=== PATIENT | female | born 1930 | race Caucasian/White ===

== ENCOUNTER 2016-04-20 07:36 | Inpatient (IN) | payer OTHER ==
--- NOTE | 2016-04-20 08:25 | Diag Imaging Result Document ---
PROCEDURE NAME: HEAD W/O CONTRAST - 04/20/2016 CT HEAD WITHOUT CONTRAST: A dose-reduction protocol was used. COMPARISON: 12/13/2014. FINDINGS: There is periorbital subcutaneous soft tissue swelling on the left. There is no evidence of intracranial hemorrhage, mass effect, or midline shift. There are minimal chronic microvascular ischemic changes. There is no indication of recent infarct, although acute infarcts may not be immediately visible. There is no evidence of skull fracture. IMPRESSION: Periorbital subcutaneous soft tissue swelling on the left. No visible acute intracranial abnormality. No hemorrhage or mass effect.
--- NOTE | 2016-04-20 08:59 | PROVIDER DOCUMENTATION ---
HPI-General Adult <Ramya Luu - Last Filed: 04/20/16 14:42> - General Source: patient, EMS Unable to obtain history due to:: other (decrease responsiveness) - History of Present Illness -Gen Adult Nature of Presenting Problems: Per daughter, patient was difficult to arouse this morning when she being called by name. patient has been fever free during this time and has not complained of any chest pain or shortness of breath. Had a fall 2 days ago. patient has not had any chest pain or shortness of breath. Has been w/o fever during this time. Has been taking trazadone and fabiola's as prescribed. <Jose Tomas - Last Filed: 04/20/16 15:03> - General Chief Complaint: Unresponsive Stated Complaint: Difficulty to arouse Time Seen by Provider: 04/20/16 08:14 Allergies/Adverse Reactions: Patient Allergies Allergy/AdvReac Type Severity Reaction Status Date / Time dexamethasone sod phosphate * Allergy Severe CHEST PAIN Verified 02/09/16 09:01 [From Decadron] codeine [Codeine] Allergy Intermediate anxiety Verified 02/09/16 09:01 dexamethasone [From Decadron] AdvReac Intermediate CHEST PAIN Verified 02/09/16 09:01 Home Medications: Home Medication List Medication Instructions Recorded Confirmed Last Taken Type Albuterol 2.5MG/Ipratrop 0.5MG 3 ml INH RTQ6H #0 neb 02/26/16 04/20/16 Unknown Rx [Duoneb (A & A)] Carvedilol [Coreg] 3.125 mg PO BID 30 Days 02/26/16 04/20/16 Unknown Rx Divalproex [Depakote Sprinkle] 750 mg PO QHS 30 Days 02/26/16 04/20/16 04/19/16 20:00 Rx Docusate Sodium [Colace] 100 mg PO BID 30 Days 02/26/16 04/20/16 Unknown Rx Duloxetine [Cymbalta] 30 mg PO DAILY #30 capsule 02/26/16 04/20/16 04/19/16 08: 00 Rx Fluticasone/Salmet 250/50 INH 1 puff INH DAILY #1 inhaler 02/26/16 04/20/16 Unknown Rx [Advair 250/50 Diskus] Furosemide [Lasix] 20 mg PO QAM 30 Days 02/26/16 04/20/16 04/19/16 08:00 Rx LISINOpril [Prinivil] 2.5 mg PO QAM 30 Days 02/26/16 04/20/16 Unknown Rx Lorazepam [Ativan] 0.5 mg PO BID 30 Days 02/26/16 04/20/16 04/19/16 20:00 Rx Melatonin 5 mg PO QHS #30 tablet 02/26/16 04/20/16 04/19/16 20:00 Rx Mirtazapine [Remeron] 30 mg PO QHS 30 Days 02/26/16 04/20/16 04/19/16 20:00 Rx Multivitamins/Minerals [Centrum 1 each PO DAILY 30 Days 02/26/16 04/20/16 08:00 Rx Silver] Olanzapine [Zyprexa] 30 mg PO QHS 30 Days 02/26/16 04/20/16 04/19/16 20:00 Rx Tramadol/APAP [Ultracet 1 each PO DAILY@1300 30 Days 02/26/16 04/20/16 Unknown Rx 37.5MG/325Mg] Trazodone [Desyrel] 50 mg PO QHS 30 Days 02/26/16 04/20/16 04/19/16 20:00 Rx Cetirizine [Zyrtec] 10 mg PO DAILY 04/20/16 04/20/16 04/19/16 08:00 History Cholecalciferol (Vit D3) [Vitamin 5,000 unit PO DAILY 04/20/16 04/20/16 08:00 History D] Omeprazole [Prilosec] 20 mg PO BID 04/20/16 04/20/16 04/19/16 20:00 History Review of Systems - Adult - REVIEW OF SYSTEMS - ADULT ROS:: limited per condition Constitutional: denies: fever Ears, Nose, Mouth & Throat: reports: no symptoms reported Cardiovascular: denies: chest pain Respiratory: denies: shortness of breath Gastrointestinal: reports: no symptoms reported Genitourinary: reports: no symptoms reported Neurological: reports: other (drowsiness) <Jose Tomas - Last Filed: 04/20/16 15:03> Past History - Adult - PAST MEDICAL HISTORY-ADULT Review of Records: reports: Nursing Assessment Review Major Childhood Illnesses: reports: denies history Cardiovascular: reports: HTN Respiratory: reports: COPD Gastrointestinal: reports: denies history Obstetrical/Gynecological: reports: denies history Genitourinary: reports: denies history Musculoskeletal: reports: denies history Neurological: reports: denies history Psychiatric: reports: psychiatric problems Endocrine/Immune: reports: denies history Other Conditions: reports: denies history - PRIOR SURGERIES/PROCEDURES Surgical/Procedure History: reports: reviewed, not pertinent - IMMUNIZATION STATUS Childhood Immunizations: See Nurse Assessment Flu Vaccine: See Nurse Assessment - FAMILY HISTORY Family History: reviewed, not pertinent <Jose Tomas - Last Filed: 04/20/16 15:03> Physical Exam-General - PHYSICAL EXAM-ADULT Initial Vital Signs Reviewed: Yes - CONSTITUTIONAL General Appearance: no apparent distress, slow to respond, other (non-toxic in appearance) - EYES Eyes: PERRL/EOMI, other (left shirley-orbital swelling) - HEAD, EARS, NOSE, MOUTH & THROAT HENMT: pharynx normal. negative: angioedema - NECK Neck: non-tender - RESPIRATORY Respiratory: chest non-tender, other (decrease BS on left base.) - CARDIOVASCULAR Cardiovascular: normal peripheral pulses - CHEST (BREASTS) Chest/Breast: deferred - GASTROINTESTINAL (ABDOMEN) Abdominal Exam: normal bowel sounds, non tender, abnormal bowel sounds, other ( no RLQ or LLQ pain). negative: distended, rebound - GENITOURINARY Female Genitalia/Pelvic Exam: deferred - MUSCULOSKELETAL Back Exam: normal inspection Extremity: non-tender, no pedal edema. negative: abnormal NV exam, deformity, erythema, pulse deficit, pedal edema - SKIN Integumentary: other (no sign of soft tissue infection.) <Jose Tomas - Last Filed: 04/20/16 15:03> Progress - PLAN OF CARE/RESULTS Progress/Plan/Lab Results: Laboratory Tests 04/20/16 04/20/16 04/20/16 08:59 09:26 09:26 WBC RBC Hgb Hct MCV MCH MCHC RDW Std Deviation Plt Count MPV Immature Gran % (Auto) Neut % (Auto) Lymph % (Auto) [place] % (Auto) Eos % (Auto) Baso % (Auto) Immature Gran # (Auto) Neut # (Auto) Lymph # (Auto) [place] # (Auto) Eos # (Auto) Baso # (Auto) PT INR PTT (Actin FS) Specimen Type ARTERIAL Sample Site R RADIAL pH 7.38 pCO2 61 H* pO2 78 HCO3 31.8 H Base Excess 9.0 H Oxyhemoglobin 92.7 L ABG O2 Sat (Calculated) 16.0 ABG O2 Saturation 98.8 ABG Carboxyhemoglobin 4.90 H ABG Methemoglobin 1.3 Bryan Test YES A-a O2 Difference 45.0 Total Hemoglobin 12.2 Lactate 0.50 Liter Flow 2.0 Blood Gas Modality CANNULA FiO2 % 28.0 Sodium 135 L Potassium 4.5 Chloride 94 L Carbon Dioxide 30 Anion Gap 11 BUN 9 Creatinine 0.7 Estimated GFR/1.73 m2 > 60 BUN/Creatinine Ratio 13 Glucose 123 H Calculated Osmolality 270 Calcium 8.7 L Total Bilirubin 0.35 AST 14 ALT 8 L Alkaline Phosphatase 67 Creatine Kinase 69 Troponin T Total Protein 5.9 L Albumin 3.2 L Globulin 2.7 Albumin/Globulin Ratio 1.2 Plasma Lactate 1.2 04/20/16 04/20/16 04/20/16 09:26 09:26 09:33 WBC 5.08 RBC 3.87 L Hgb 12.3 Hct 39.2 MCV 101.3 H MCH 31.8 H MCHC 31.4 L RDW Std Deviation 15.7 H Plt Count 104 L MPV 10.8 H Immature Gran % (Auto) 0.8 H Neut % (Auto) 81.5 H Lymph % (Auto) 11.0 L [place] % (Auto) 6.3 Eos % (Auto) 0.2 Baso % (Auto) 0.2 Immature Gran # (Auto) 0.04 Neut # (Auto) 4.14 Lymph # (Auto) 0.56 L [place] # (Auto) 0.32 Eos # (Auto) 0.01 Baso # (Auto) 0.01 PT 10.9 INR 1.03 PTT (Actin FS) 31.3 Specimen Type Sample Site pH pCO2 pO2 HCO3 Base Excess Oxyhemoglobin ABG O2 Sat (Calculated) ABG O2 Saturation ABG Carboxyhemoglobin ABG Methemoglobin Bryan Test A-a O2 Difference Total Hemoglobin Lactate Liter Flow Blood Gas Modality FiO2 % Sodium Potassium Chloride Carbon Dioxide Anion Gap BUN Creatinine Estimated GFR/1.73 m2 BUN/Creatinine Ratio Glucose Calculated Osmolality Calcium Total Bilirubin AST ALT Alkaline Phosphatase Creatine Kinase Troponin T < 0.010 Total Protein Albumin Globulin Albumin/Globulin Ratio Plasma Lactate - REASSESSMENT Reassessment #1 Time Reassessed: 08:58 Status: other (stable, Daughter made aware of CT results and curerent treatment plan.) Reassessment #2 Time Reassessed: 11:20 Status: improving (patient AAO times person, place, time and current situation. Asked when she can go home, patient participating in conversation. Per daughter patient is acting her normal self again. Made aware of polypharmacy and to follow up with PCP for medication adjustments.) - XRAY 1 XRAY Study: Chest (LLL lobe infiltrate which is greater than rll infiltrate.) Impression: Abnormal - CT/MRI 1 CT Study: Head (No acute intracranial bleed and no viable acuute intracranial abnormality.) - CONSULTS/PCP/HOSPITALIST Notification Time Discussed: 13:06 Consult Disposition: Will see in ED (Spoke with Samra Pantoja and made aware of Xray finding and current treatment plan. Sasys he will accept patient for admission.) <Jose Tomas - Last Filed: 04/20/16 15:03> Departure - Departure Time of Disposition Order: 11:26 Certified Medical Emergency: Emergent <Ramya Luu - Last Filed: 04/20/16 14:42> - Departure Time of Disposition Order: 12:03 Certified Medical Emergency: Emergent <Jose Tomas - Last Filed: 04/20/16 15:03> - Departure DIAGNOSIS: Polypharmacy, CAP (community acquired pneumonia) Disposition: ADMITTED INPATIENT 09 Condition: Stable Additional Instructions: daughter made aware of treatment plan and all questions were answered regarding treatment. Referrals: Noe Pedraza MD [Primary Care Provider] - Instructions: Polypharmacy Problems Attestation - Scribe Verification/Attestation Scribe:: Ramya Luu Acting as Scribe for:: Jose Tomas Scribe documention review:: This chart was documented by a scribe and accurately reflects the service the provider performed and the decisions made by the provider. <Ramya Luu - Last Filed: 04/20/16 14:42> Physician Attestation
[2016-04-20 09:33] LABS: ALLEN TEST YES; BLOOD TYPE ARTERIAL; DRAW SITE R RADIAL; METHB 1.3 % (0.0-1.5); PO2(98.6) 78 mmHg (60-100); SAMPLE BLOOD; SAO2 98.8 % (95.0-100.0); THB 12.2 g/dL (11.5-17.4); pH(98.6) 7.38 (7.35-7.45)
[2016-04-20 09:34] LABS: MANUAL DIFF NEEDED? NO
[2016-04-20 09:35] LABS: MODALITY CANNULA; PCO2(98.6) 61 mmHg (35-45)
[2016-04-20 09:37] LABS: BASO% 0.2 % (0.0-0.8); EOS# 0.01 X1000 (0.0-0.7); EOS% 0.2 % (0.0-10.0); HEMATOCRIT 39.2 % (37.0-47.0); HEMOGLOBIN 12.3 g/dL (12.0-16.0); IMM GRAN# 0.04 X1000 (0.0-0.04); IMM GRAN% 0.8 % (0.0-0.5); LYMPH# 0.56 X1000 (1.2-3.4); MCH 31.8 PG (27-31); MCHC 31.4 g/dL (33-37); MCV 101.3 FL (81-99); MONO# 0.32 X1000 (0.11-0.59); MONO% 6.3 % (1.7-9.3); MPV 10.8 FL (7.4-10.4); NEUT% 81.5 % (42.2-75.2); PLT 104 X1000 (130-400); RBC 3.87 XMIL (4.2-5.4)
[2016-04-20 09:47] LABS: INR 1.03; PROTIME 10.9 Seconds (9.2-11.7); PTT 31.3 Seconds (22.0-36.0)
[2016-04-20 09:58] LABS: AGAP 11; ALBUMIN 3.2 g/dL (3.5-5.0); ALKALINE PHOSPHATASE 67 U/L (32-104); BUN 9 mg/dL (8-22); CALCIUM 8.7 mg/dL (8.8-10.2); CHLORIDE 94 mmol/L (98-107); CK PROFILE 69 U/L (24-173); COSMO 270; GOT 14 U/L (10-30); GPT 8 U/L (10-36); POTASSIUM 4.5 mmol/L (3.5-5.1); SODIUM 135 mmol/L (136-145); TCO2 30 mmol/L (25-35); TOTAL BILIRUBIN 0.35 mg/dL (0.20-1.00); TOTAL PROTEIN 5.9 g/dL (6.3-8.3)
[2016-04-20] MEDS ORDERED: ZOSYN 2.25 GM/NS 50 ML IV SCH ×2 (12:30→13:00)
[2016-04-20] MEDS ORDERED: NS 1,000 ML IV SCH (13:45)
[2016-04-20] MEDS ORDERED: ROBITUSSIN-DM PO PRN (16:35)
[2016-04-20] MEDS ORDERED: ZOFRAN IV PRN (16:35)
[2016-04-20] MEDS ORDERED: MILK OF MAGNESIA PO PRN (16:36)
--- NOTE | 2016-04-20 17:18 | HISTORY AND PHYSICAL ---
CHIEF COMPLAINT: Mental status change and fall. HISTORY OF PRESENT ILLNESS: The patient is an 85-year-old white female, followed by Dr. Starla Pedraza. Apparently this morning her daughter noted that the patient was not breathing correctly and that some dogs that are in the house began to notify family members she was not breathing and having her normal mentation. Daughter went in and woke the patient up and grabbed her out of bed but the patient was not responding well and apparently fell over and hit her left eye and her right knee. There was no loss of consciousness. Patient since then has done better. She has had no particular difficulties with mental status change since being in the ER, she has been eating hamburger and feeling better overall. Notably she is on quite a lot of medications. Some of these were administered on a recent stay and adjusted to recent stay at [facility]. Patient is a poor historian and she thinks she might have run some fever but cannot give me a time frame on that. MEDICATIONS: Prior to admission are Coreg 3.125 mg p.o. b.i.d., Depakote Sprinkle 750 mg p.o. at bedtime, Cymbalta 30 mg p.o. daily, Lasix 20 mg p.o. q.a.m., lisinopril 2.5 mg p.o. q.a.m., Ativan 0.5 mg p.o. b.i.d., melatonin 5 mg p.o. at bedtime, Remeron 30 mg p.o. at bedtime, MVI 1 p.o. daily, Zyprexa 30 mg p.o. at bedtime, Ultracet 1 p.o. daily, duo nebs q.6 hours via nebulizer, Colace 100 mg p.o. b.i.d., Advair 250/50 one puff daily, trazodone 50 mg p.o. at bedtime, Zyrtec 10 mg p.o. daily, vitamin D3 5000 units p.o. daily, Prilosec 20 mg p.o. b.i.d. I notice an Exelon patch is on her back so apparently she takes this. ALLERGIES: To codeine, dexamethasone. PAST MEDICAL HISTORY: 1. Frequent pneumonias. 2. COPD. 3. Paranoid schizophrenia. 4. Chronic systolic heart failure. 5. Mild dementia. 6. Depression with anxiety. 7. History of osteoporosis with compression fracture at T5 and T6. 8. Gastroesophageal reflux disease 9. Tobacco abuse. 10. Pulmonary fibrosis. 11. History of pericardial effusion. PAST SURGICAL HISTORY: Cholecystectomy. FAMILY HISTORY: Notable for father dying of lung cancer at age 69. SOCIAL HISTORY: Patient lives in [place]. She is and lives with her daughter. Continues to smoke. No alcohol usage. REVIEW OF SYSTEMS: Notable for chronic constipation otherwise negative. PHYSICAL EXAMINATION: VITAL SIGNS: Temperature 98.1 degrees, pulse 86, respirations 15, blood pressure 144/74, O2 saturation on 1 L 95%, on room air down to 90% at one point. GENERAL: Elderly white female, edentulous. SKIN: A moderate bruise noted left zygoma area. HEENT: ANSELMO. EOMI. Sclerae anicteric. OP no redness. Tongue in the midline. NECK: No point tenderness. FROM neck. No JVD or bruits. No LA identified. CV: RRR without distinct murmur. LUNGS: Very prominent crackles left lower lung field, maybe minimal dry crackles right lung base. Rare wheezes bilaterally. BREAST/ PELVIC/ RECTAL: Deferred. EXTREMITIES: No calf tenderness, cords or edema. FROM right knee without particular swelling, no bruising identified . NEURO: Cranial nerves 2-12 are intact. Nonfocal. She moves all extremities well. She does show some signs of mild dementia and mild confusion which is chronic. LABS: White count of 5.08, hemoglobin 12.3, hematocrit 39.2, MCV of 101, platelets 104,000, neutrophils 82, lymphocytes 11. PT 10.9, INR 1.03, PTT 31.3. ABG on 2 L reveals pH 7.38, pCO2 61, PO2 78, HC03 31.8, O2 saturation 98, carboxyhemoglobin 4.9. Sodium 135, potassium 4.5, chloride 94, CO2 20, BUN 9, creatinine 0.7, glucose 123, calcium 8.7, total bilirubin 0.35, AST 14, ALT 8, alkaline phosphatase 67, total CK 69, troponin less than 0.01, total protein 5.9, albumin 3.2. Plasma lactate 1.2. Chest x-ray reveals possible infiltrate left lung base. CT head without contrast reveals periorbital subcutaneous soft tissue swelling left zygoma area. No intracranial abnormality identified. ASSESSMENT: 1. Mental status change brief thought related to polypharmacy. 2. Fall with contusion left zygoma and right knee. 3. Chronic obstructive pulmonary disease. 4. Paranoid schizophrenia. 5. Mild dementia. 6. Chronic systolic heart failure currently compensated. 7. Pulmonary fibrosis. 8. Tobacco abuse. 9. Gastroesophageal reflux disease. 10. Osteoporosis. 11. Depression with anxiety. 12. History of pericardial effusion remote. 13. Probable left lower lobe pneumonia. PLAN: At this time blood cultures x2 have been obtained and will start the patient on Zosyn. Will give low-dose oxygen, continue home nebulizer treatments, follow her on the Zosyn, pulmonary toilet. Will back off on her many medications such as leave her off the Remeron and Ultram. Prophylax for DVT with Lovenox. Will monitor with neurological checks for any neurological status changes.
[2016-04-20] MEDS: DUONEB (A & A) INH SCH ×2 (17:59→21:30)
[2016-04-20] MEDS: ZOSYN 2.25 GM/NS 50 ML IV SCH (20:41)
[2016-04-20] MEDS: NS 1,000 ML IV SCH (20:42)
[2016-04-20] MEDS: DESYREL PO SCH (20:42)
[2016-04-20] MEDS: COREG PO SCH (20:42)
[2016-04-20] MEDS: ATIVAN PO SCH (20:43)
[2016-04-20] MEDS: COLACE PO SCH (20:43)
[2016-04-20] MEDS: DEPAKOTE SPRINKLE PO SCH (20:43)
[2016-04-20] MEDS: PRILOSEC PO SCH (20:43)
[2016-04-20] MEDS: MELATONIN PO SCH (20:43)
[2016-04-20] MEDS: ZYPREXA PO SCH (20:49)
[2016-04-21] MEDS: TYLENOL PO PRN ×2 (00:39→18:39)
[2016-04-21] MEDS: ZOSYN 2.25 GM/NS 50 ML IV SCH ×4 (03:39→22:44)
[2016-04-21] MEDS: DUONEB (A & A) INH SCH ×4 (04:05→22:15)
[2016-04-21] MEDS: ADVAIR 250/50 DISKUS INH SCH (09:02)
[2016-04-21] MEDS: COLACE PO SCH ×2 (09:13→22:45)
[2016-04-21] MEDS: PRINIVIL PO SCH (09:14)
[2016-04-21] MEDS: LASIX PO SCH (09:14)
[2016-04-21] MEDS: COREG PO SCH ×2 (09:15→22:45)
[2016-04-21] MEDS: ATIVAN PO SCH ×2 (09:15→22:44)
[2016-04-21] MEDS: CYMBALTA PO SCH (09:15)
[2016-04-21] MEDS: PRILOSEC PO SCH ×2 (09:15→22:44)
[2016-04-21] MEDS: CENTRUM SILVER PO SCH (09:15)
[2016-04-21] MEDS: VITAMIN D PO SCH (09:15)
--- NOTE | 2016-04-21 10:18 | PROGRESS NOTE ---
DATE: 04/21/2016 SUBJECTIVE: Patient overall feels better. She seems to be at her baseline mentation. OBJECTIVE: Vital Signs: Afebrile, pulse 72, respirations 15-18, blood pressure 154/69, O2 saturation on room air 95-100% CV: RRR. Lungs: Crackles at left lung base, might be slightly less than yesterday, still fairly prominent. Is and Os: Incomplete. ASSESSMENT: 1. Delirium, improved with slight adjustments downward in sedatives. 2. History of fall with left zygoma bruising and right knee bruising. 3. Chronic obstructive pulmonary disease. 4. Possible left lower lobe pneumonia. 5. Paranoid schizophrenia. 6. Mild dementia. 7. Chronic systolic heart failure, compensated. 8. Chronic pulmonary fibrosis. 9. Tobacco abuse. 10. Gastroesophageal reflux disease. 11. Osteoporosis. 12. Depression with anxiety. 13. Remote pericardial effusion. PLAN: At this time, continue IV Zosyn. Continue DuoNebs, Advair. Continue schizophrenia medications, low-dose KRISTINE inhibitor, antidepressants, and follow the patient clinically. We will ambulate the patient tomorrow with physical therapy and consider discharge home in the next couple of days as appropriate.
[2016-04-21] MEDS: LOVENOX SUBQ SCH ×2 (13:19→14:43)
[2016-04-21] MEDS: ZYRTEC PO SCH (14:42)
[2016-04-21] MEDS: MELATONIN PO SCH (22:44)
[2016-04-21] MEDS: DEPAKOTE SPRINKLE PO SCH (22:44)
[2016-04-21] MEDS: ZYPREXA PO SCH (22:44)
[2016-04-21] MEDS: NS 1,000 ML IV SCH (22:45)
[2016-04-21] MEDS: DESYREL PO SCH (22:45)
[2016-04-22] MEDS: DUONEB (A & A) INH SCH ×3 (02:51→20:14)
[2016-04-22] MEDS: ZOSYN 2.25 GM/NS 50 ML IV SCH ×4 (04:42→22:15)
--- NOTE | 2016-04-22 07:34 | Diag Imaging Result Document ---
PROCEDURE NAME: CHEST-PORTABLE - 04/20/2016 PORTABLE CHEST: COMPARISON: 02/21/2016. FINDINGS: Heart size is normal. There is infiltrate on the left which is most prominent at the lower lung. There is a small left pleural effusion. There is apparent mild infiltrate at the right upper lung. There is no pneumothorax seen. IMPRESSION: Infiltrate and small pleural effusion on the left. Apparent mild infiltrate at right upper lung. The possibility of pneumonia cannot be excluded. Followup is recommended.
--- NOTE | 2016-04-22 07:35 | Diag Imaging Result Document ---
PROCEDURE NAME: KNEE 3 VIEWS RIGHT - 04/20/2016 RIGHT KNEE, 3 VIEWS: FINDINGS: There are mild degenerative changes. There is no fracture or dislocation identified. There are artifacts from bandage noted which mildly limit detail. IMPRESSION: No evidence of fracture or dislocation.
--- NOTE | 2016-04-22 07:35 | Diag Imaging Result Document ---
PROCEDURE NAME: SHOULDER-RIGHT - 04/20/2016 RIGHT SHOULDER, 3 VIEWS: FINDINGS: There are degenerative changes. There is no fracture or dislocation identified. IMPRESSION: Degenerative changes. No evidence of fracture or dislocation.
--- NOTE | 2016-04-22 09:19 | EKG Report ---
Test Performed on : 04/20/2016 07:58:34 AM Test Reason : AMS Blood Pressure : / mmHG Vent. Rate : 095 BPM Atrial Rate : 095 BPM P-R Int : 164 ms QRS Dur : 078 ms QT Int : 350 ms P-R-T Axes : 048 -40 042 degrees QTc Int : 439 ms Normal sinus rhythm. Left axis deviation Anterior infarct , age undetermined Abnormal ECG When compared with ECG of 14-FEB-2016 08:32, Anterior infarct is now present Nonspecific T wave abnormality no longer evident in Inferior leads Nonspecific T wave abnormality now evident in Anterior leads Unconfirmed Result
[2016-04-22] MEDS: COREG PO SCH ×2 (10:08→22:15)
[2016-04-22] MEDS: ZYRTEC PO SCH (10:08)
[2016-04-22] MEDS: COLACE PO SCH ×2 (10:08→22:15)
[2016-04-22] MEDS: ATIVAN PO SCH ×2 (10:08→22:16)
[2016-04-22] MEDS: CYMBALTA PO SCH (10:08)
[2016-04-22] MEDS: PRINIVIL PO SCH (10:09)
[2016-04-22] MEDS: VITAMIN D PO SCH (10:09)
[2016-04-22] MEDS: CENTRUM SILVER PO SCH (10:09)
[2016-04-22] MEDS: LASIX PO SCH (10:09)
[2016-04-22] MEDS: PRILOSEC PO SCH ×2 (10:09→22:15)
--- NOTE | 2016-04-22 10:20 | Diag Imaging Result Document ---
PROCEDURE NAME: CHEST-2 VIEWS - 04/22/2016 TWO VIEWS OF THE CHEST: FINDINGS: There is pleural fluid in both costophrenic sulci. There is interstitial pulmonary edema which appears slightly worse than on 04/20/2016. There is some fibrosis and/or atelectasis in the left base which appears slightly better than on 04/20/2016. IMPRESSION: Pulmonary edema and left lower lobe atelectasis.
[2016-04-22] MEDS: ADVAIR 250/50 DISKUS INH SCH (10:42)
[2016-04-22] MEDS: LOVENOX SUBQ SCH (14:15)
[2016-04-22] MEDS: DESYREL PO SCH (22:15)
[2016-04-22] MEDS: DEPAKOTE SPRINKLE PO SCH (22:15)
[2016-04-22] MEDS: MELATONIN PO SCH (22:15)
[2016-04-22] MEDS: ZYPREXA PO SCH (22:16)
[2016-04-23] MEDS: DUONEB (A & A) INH SCH ×2 (03:44)
[2016-04-23] MEDS: ZOSYN 2.25 GM/NS 50 ML IV SCH (03:47)
[2016-04-23] MEDS: TYLENOL PO PRN (05:30)
[2016-04-23 07:31] VITALS: BP 145/58
[2016-04-23] MEDS: CENTRUM SILVER PO SCH (08:35)
[2016-04-23] MEDS: LASIX PO SCH (08:35)
[2016-04-23] MEDS: COLACE PO SCH (08:35)
[2016-04-23] MEDS: CYMBALTA PO SCH (08:35)
[2016-04-23] MEDS: ZYRTEC PO SCH (08:36)
[2016-04-23] MEDS: PRINIVIL PO SCH (08:36)
[2016-04-23] MEDS: PRILOSEC PO SCH (08:36)
[2016-04-23] MEDS: VITAMIN D PO SCH (08:36)
[2016-04-23] MEDS: COREG PO SCH (08:36)
[2016-04-23] MEDS: ATIVAN PO SCH (08:38)
--- NOTE | 2016-04-23 22:06 | DISCHARGE SUMMARY ---
ADMISSION DATE: 04/20/2016 DISCHARGE DATE: 04/23/2016 DISCHARGING DIAGNOSIS: Acute chronic obstructive pulmonary disease exacerbation. SECONDARY DIAGNOSIS: 1. Paranoid schizophrenia. 2. Chronic systolic heart failure, improving. 3. Osteoporotic compression fracture at T5 and T6. 4. Acid reflux disease. 5. Nicotine dependency. 6. History of pulmonary fibrosis. 7. Macular degeneration. 8. Status post cryoablation for left shoulder.for Henao's disease. BRIEF HISTORY: Please see the H and P that was done by Dr. Cabrales. In brief, she is an 85-year- old white female, was admitted to the hospital with altered mental status, shortness of breath, cough, wheezing, and falling. She complains of knee pain on the right side. She was seen 2 days ago in my office for cryoablation of skin lesions. HOSPITAL COURSE: She was given oxygen, bronchodilators, IV steroids. She came back to the baseline. She wants to go home. I did discuss with her daughter. During this hospital course, the laboratories as follows: CBC: White cell count 5, hematocrit 39, platelets 104,000. PT/INR is normal. ABG: PH is 7.38, pCO2 62, PO2 78 on 2 L. SMA7 is normal. Sodium 135, potassium 4.5, chloride 94, BUN 9, creatinine 0.7, glucose 120, calcium 8.7. LFTs were normal. Chest x-ray stable. Vaccinations were up-to-date. Flu vaccine 2016, pneumococcal vaccine 2016. Tdap 2012. DISCHARGE INSTRUCTIONS: 1. Follow up in my office next week. 2. Coreg 3.125 p.o. b.i.d., Depakote 750 at bedtime, Cymbalta 30 daily, Lasix 20 daily, lisinopril 2.5 daily, lorazepam 0.5 p.o. b.i.d., melatonin 5 mg at bedtime, Remeron 30 mg at bedtime, multivitamin 1 tablet daily, Zyprexa 30 mg at bedtime, Ultracet as needed for pain, DuoNeb q.6 hours as needed, oxygen 1 L, Colace 100 p.o. b.i.d., Advair 250/ 50 one puff daily, trazodone 50 at bedtime, Zyrtec 10 daily, vitamin D 5000 units daily, Prilosec 20 p.o. b.i.d. 3. Follow up in my office next week as well as psychiatrist. ESTEPHANIA
== END 2016-04-23 09:51 | disposition home health service (06) | DRG 191 ==
LOC: EDBD → ED 07:36 → 4N 15:31 → OBSVTOIN 15:31
PROVIDERS: ADMIT Internal Medicine; ATTEND Internal Medicine
DX: J44.1 Chronic obstructive pulmonary disease with (acute) exacerbation (principal); I31.3 Pericardial effusion (noninflammatory); I11.0 Hypertensive heart disease with heart failure; I50.22 Chronic systolic (congestive) heart failure; F03.90 Unspecified dementia, unspecified severity, without behavioral disturbance, psychotic disturbance, mood disturbance, and anxiety; F20.0 Paranoid schizophrenia; M80.08XA Age-related osteoporosis with current pathological fracture, vertebra(e), initial encounter for fracture; D04.9 Carcinoma in situ of skin, unspecified; W19.XXXA Unspecified fall, initial encounter; Z79.899 Other long term (current) drug therapy; Z79.51 Long term (current) use of inhaled steroids; F41.8 Other specified anxiety disorders; K21.9 Gastro-esophageal reflux disease without esophagitis; F17.210 Nicotine dependence, cigarettes, uncomplicated; Z80.1 Family history of malignant neoplasm of trachea, bronchus and lung; K59.09 Other constipation; S00.83XA Contusion of other part of head, initial encounter; S80.01XA Contusion of right knee, initial encounter; H35.30 Unspecified macular degeneration
CPT/HCPCS: 70450; 71010; 71020; 80053; 82550; 82805; 82948; 83605; 84484; 85025; 85610; 85730; 87040; 93005; 94640; 94761; 94799; 96365; J1650; J2543; J7030; 97116-GP; 97530-GP

== ENCOUNTER 2016-07-30 09:08 | Inpatient (IN) ==
[2016-07-30] MEDS ORDERED: LASIX IV ONE (09:46)
[2016-07-30 09:57] LABS: MANUAL DIFF NEEDED? NO
[2016-07-30 10:13] LABS: BASO% 0.3 % (0.0-0.8); EOS# 0.09 X1000 (0.0-0.7); EOS% 1.2 % (0.0-10.0); HEMATOCRIT 33.5 % (37.0-47.0); HEMOGLOBIN 10.9 g/dL (12.0-16.0); IMM GRAN# 0.02 X1000 (0.0-0.04); IMM GRAN% 0.3 % (0.0-0.5); LYMPH# 0.64 X1000 (1.2-3.4); LYMPH% 8.8 % (20.5-51.1); MCH 30.8 PG (27-31); MCHC 32.5 g/dL (33-37); MCV 94.6 FL (81-99); MONO# 0.78 X1000 (0.11-0.59); MONO% 10.7 % (1.7-9.3); MPV 9.8 FL (7.4-10.4); NEUT% 78.7 % (42.2-75.2); PLT 183 X1000 (130-400); RBC 3.54 XMIL (4.2-5.4)
[2016-07-30 10:24] LABS: URINE CULTURE NEEDED? NO; URINE MICRO REVIEW NEEDED? NO; URINE SOURCE CLEAN CATCH
[2016-07-30 10:27] LABS: BILIRUBIN URINE NEGATIVE (NEGATIVE); BLOOD URINE NEGATIVE (NEGATIVE); COLOR STRAW; GLUCOSE URINE NEGATIVE (NEGATIVE); LEUKOCYTES URINE NEGATIVE (NEGATIVE); NITRITE URINE NEGATIVE (NEGATIVE); PROTEIN URINE NEGATIVE (NEGATIVE); SP GRAVITY URINE 1.001; TURBIDITY URINE CLEAR (CLEAR); UROBILINOGEN URINE NORMAL (NORMAL)
[2016-07-30 10:28] LABS: UR EPITHELIAL CELLS <10 /HPF (<10); URINE BACTERIA NEGATIVE /HPF; URINE RBC <10 /HPF (<10); URINE WBC <10 /HPF (<10)
[2016-07-30 10:31] LABS: INR 1.02; PROTIME 10.7 Seconds (9.2-11.7); PTT 32.6 Seconds (22.0-36.0)
--- NOTE | 2016-07-30 10:33 | EKG Report ---
Test Performed on : 07/30/2016 09:23:52 AM Test Reason : sob Blood Pressure : / mmHG Vent. Rate : 077 BPM Atrial Rate : 077 BPM P-R Int : 156 ms QRS Dur : 078 ms QT Int : 354 ms P-R-T Axes : 000 -46 015 degrees QTc Int : 400 ms Normal sinus rhythm. Left anterior fascicular block Cannot rule out Anterior infarct (cited on or before 20-APR-2016) Abnormal ECG When compared with ECG of 20-APR-2016 07:58, Nonspecific T wave abnormality no longer evident in Anterior leads Unconfirmed Result
[2016-07-30 10:40] LABS: ALBUMIN 3.9 g/dL (3.5-5.0); CALCIUM 9.1 mg/dL (8.8-10.2); MAGNESIUM 1.9 mg/dL (1.5-2.7); POTASSIUM 5.4 mmol/L (3.5-5.1); TOTAL BILIRUBIN 0.48 mg/dL (0.20-1.00); TOTAL PROTEIN 6.5 g/dL (6.3-8.3)
--- NOTE | 2016-07-30 10:42 | Diag Imaging Result Doc PS360 ---
EXAM: CHEST-PORTABLE HISTORY: SOB TECHNIQUE: Erect AP portable at 1005 COMMENT: There is apparent interstitial fibrosis. Some additional atelectasis in the left base may be present which was not evident on 02/21/2016, otherwise has been no apparent change. IMPRESSION: Pulmonary fibrosis. Questionable atelectasis. Electronically signed by oDn Turnre 07/30/2016 10:39 AM
--- NOTE | 2016-07-30 10:43 | Diag Imaging Result Doc PS360 ---
EXAM: FOOT COMPLETE LEFT HISTORY: Injury TECHNIQUE: Three views COMMENT: There is a fracture of the medial base of the proximal phalanx of the great toe. There is plantar spurring of the calcaneus. There is soft tissue swelling over the forefoot. There are subchondral cysts in the head of the first metatarsal. IMPRESSION: Fracture first proximal phalanx. Electronically signed by Don Turner 07/30/2016 10:40 AM
--- NOTE | 2016-07-30 11:24 | PROVIDER DOCUMENTATION ---
This chart was entered by Parrish Banda Scribe, acting as scribe for So Grace MD. HPI-General Adult - General Chief Complaint: Edema Stated Complaint: swelling in legs Time Seen by Provider: 07/30/16 09:17 Source: patient, family Allergies/Adverse Reactions: Patient Allergies Allergy/AdvReac Type Severity Reaction Status Date / Time codeine [Codeine] AdvReac Mild anxiety Verified 07/30/16 09:53 dexamethasone [From Decadron] AdvReac Mild CHEST PAIN Verified 07/30/16 09:53 dexamethasone sod phosphate * AdvReac Mild CHEST PAIN Verified 07/30/16 09:53 [From Decadron] Home Medications: Home Medication List Medication Instructions Recorded Confirmed Last Taken Type Albuterol 2.5MG/Ipratrop 0.5MG 3 ml INH RTQ6H #0 neb 02/26/16 07/30/16 Unknown Rx [Duoneb (A & A)] Carvedilol [Coreg] 3.125 mg PO BID 30 Days 02/26/16 07/30/16 Unknown Rx Divalproex [Depakote Sprinkle] 750 mg PO QHS 30 Days 02/26/16 07/30/16 04/19/16 20:00 Rx Docusate Sodium [Colace] 100 mg PO BID 30 Days 02/26/16 07/30/16 Unknown Rx Duloxetine [Cymbalta] 30 mg PO DAILY #30 capsule 02/26/16 07/30/16 04/19/16 08: 00 Rx Fluticasone/Salmet 250/50 INH 1 puff INH DAILY #1 inhaler 02/26/16 07/30/16 Unknown Rx [Advair 250/50 Diskus] Furosemide [Lasix] 20 mg PO QAM 30 Days 02/26/16 07/30/16 04/19/16 08:00 Rx LISINOpril [Prinivil] 2.5 mg PO QAM 30 Days 02/26/16 07/30/16 Unknown Rx Lorazepam [Ativan] 0.5 mg PO BID 30 Days 02/26/16 07/30/16 04/19/16 20:00 Rx Melatonin 5 mg PO QHS #30 tablet 02/26/16 07/30/16 04/19/16 20:00 Rx Mirtazapine [Remeron] 30 mg PO QHS 30 Days 02/26/16 07/30/16 04/19/16 20:00 Rx Multivitamins/Minerals [Centrum 1 each PO DAILY 30 Days 02/26/16 07/30/16 08:00 Rx Silver] Olanzapine [Zyprexa] 30 mg PO QHS 30 Days 02/26/16 07/30/16 04/19/16 20:00 Rx Tramadol/APAP [Ultracet 1 each PO DAILY@1300 30 Days 02/26/16 07/30/16 Unknown Rx 37.5MG/325Mg] Trazodone [Desyrel] 50 mg PO QHS 30 Days 02/26/16 07/30/16 04/19/16 20:00 Rx Cetirizine [Zyrtec] 10 mg PO DAILY 04/20/16 07/30/16 04/19/16 08:00 History Cholecalciferol (Vit D3) [Vitamin 5,000 unit PO DAILY 04/20/16 07/30/16 08:00 History D] Omeprazole [Prilosec] 20 mg PO BID 04/20/16 07/30/16 04/19/16 20:00 History - History of Present Illness -Gen Adult Nature of Presenting Problems: 85 yo F presents to the ER with complaint of swelling bilaterally in her legs x 3 months. PT has a bruise on her L foot and toes. PT also complains of a productive cough. Pt denies all other symptoms. Location of Pain/Injury: reports: feet (and legs) Severity: reports: mild Onset/Duration: reports: other (3 months) Timing: reports: still present Associated Symptoms: reports: other (edema) Review of Systems - Adult - REVIEW OF SYSTEMS - ADULT Constitutional: denies: chills, fever Cardiovascular: reports: see HPI, edema. denies: chest pain, palpitations Respiratory: reports: cough. denies: shortness of breath Gastrointestinal: denies: abdominal pain, nausea, vomiting Musculoskeletal: reports: see HPI, other (leg pain) All Other Systems: Reviewed and Negative Past History - Adult - PAST MEDICAL HISTORY-ADULT Review of Records: reports: Old Records Reviewed, Nursing Assessment Review, Medications Reviewed, Social history reviewed & non-contributory. Major Childhood Illnesses: reports: denies history Cardiovascular: reports: HTN Respiratory: reports: COPD Gastrointestinal: reports: denies history Obstetrical/Gynecological: reports: denies history Genitourinary: reports: denies history Musculoskeletal: reports: denies history Neurological: reports: denies history Psychiatric: reports: psychiatric problems Endocrine/Immune: reports: denies history Other Conditions: reports: denies history - PRIOR SURGERIES/PROCEDURES Surgical/Procedure History: reports: reviewed, not pertinent - IMMUNIZATION STATUS Childhood Immunizations: See Nurse Assessment Flu Vaccine: See Nurse Assessment - FAMILY HISTORY Family History: reviewed, not pertinent Physical Exam-General - PHYSICAL EXAM-ADULT Initial Vital Signs Reviewed: Yes - CONSTITUTIONAL General Appearance: appears well, alert, no apparent distress - NECK Neck: non-tender, full range of motion, supple - RESPIRATORY Respiratory: chest non-tender, lungs clear, normal breath sounds - CARDIOVASCULAR Cardiovascular: normal peripheral pulses, regular rate, rhythm - GASTROINTESTINAL (ABDOMEN) Abdominal Exam: normal bowel sounds, non tender, soft - MUSCULOSKELETAL Extremity: non-tender, pedal edema, swelling - SKIN Integumentary: normal turgor, warm/dry Progress - PLAN OF CARE/RESULTS Progress/Plan/Lab Results: Vital Signs - 8 hr 07/30/16 09:12 Temperature 97.7 F Pulse Rate 84 Respiratory Rate 18 Blood Pressure 144/77 O2 Sat by Pulse Oximetry 99 Orders Category Date Time Status EKG [EKG] Stat Ther 07/30/16 09:17 Ordered Result Diagrams: 07/30/16 09:40 07/30/16 09:40 - EKG 1 Time of EKG reading by physician:: 09:44 EKG Read and Signed by:: So Grace EKG Interpretation (*Must complete 3 of following elements*): Abnormal Rate: 77 Rhythm: NSR Roy: normal QRS: normal ST Wave: normal Comments: left anterior fascicular block; can't rule out anterior infarct, age undete - XRAY 1 XRAY: Left XRAY Study: Foot Impression: Abnormal XRAY Interpretation: fx to 1st phalanx 2 XRAY Study: Chest Impression: Normal XRAY Interpretation: pulmoanry fibriosis - CONSULTS/PCP/HOSPITALIST Notification #1 *Consult/PCP/Hospitalist*: Dr. Pedraza Time Discussed: 11:23 Consult Disposition: Admit Departure - Departure Date of Disposition Decision: 07/30/16 Time of Disposition Decision: 11:23 DIAGNOSIS: Leg swelling, CHF (congestive heart failure) Disposition: ADMITTED INPATIENT 09 Certified Medical Emergency: Emergent Condition: Stable Referrals and Follow-Ups: Noe Pedraza MD [Primary Care Provider] - - Critical Care Note This patient required my direct & personal management of CC.: No This chart was documented by the indicated scribe, (Parrish Banda, [place]) and accurately reflects the services I performed and decisions made by me, So Grace MD, as attested by the provider's signature.
[2016-07-30] MEDS ORDERED: NORCO-7.5 PO ONE (16:30)
[2016-07-30] MEDS: SODIUM CHLORIDE 0.9% INJ SCH (18:46)
[2016-07-30] MEDS: PROTONIX IV SCH (18:46)
[2016-07-30] MEDS: NS 1,000 ML IV SCH (18:46)
[2016-07-30] MEDS: LOVENOX SUBQ SCH (18:46)
--- NOTE | 2016-07-30 19:23 | HISTORY AND PHYSICAL ---
SUBJECTIVE: Altered mental status, hyponatremia, swelling of feet, history of fall sustained injury to the left foot. HISTORY OF PRESENT ILLNESS: She is an 85-year-old white female, who was brought into the emergency room with the above problems. She has known history of COPD/nonischemic congestive heart failure. EF 30%. Last echocardiography 2014. She was edematous as per the ED physician. Given IV Lasix with excellent diuresis. She also had a fall, sustained injury to the left foot resulting into the proximal phalanx of the great toe fracture identified. Patient felt better. Sodium level is 124. Chest x-ray: Chronic COPD changes with fibrosis. Basically, admitted to the hospital. 1. Altered mental status due to metabolic encephalopathy due to hyponatremia. 2. Decompensated systolic heart failure. 3. Fracture of the left foot on the great toe. Basically needs gentle hydration. Optimize the treatment for heart failure and COPD. If no better will consider Samsca. Physical therapy. Venous Dopplers were negative for DVT as per the ED physician. As a result, hospital admission was warranted. PAST MEDICAL HISTORY: COPD with fibrosis. Paranoid schizophrenia. Chronic nonischemic systolic heart failure. Mild dementia. Depression with anxiety. Compression fracture at T5-T6 and acid reflux disease. Tobacco abuse. Pulmonary fibrosis, history of pericardial effusion. PAST SURGICAL HISTORY: Cholecystectomy. MEDICATIONS: Coreg 3.125 p.o. b.i.d. Depakote 750 at bedtime. Cymbalta 30 mg daily. Lasix 20 mg daily. Lisinopril 2.5 mg daily. Ativan 0.5 p.o. b.i.d. Melatonin 5 mg daily. Remeron 30 mg daily. Multivitamin 1 tablet daily. Zyprexa 30 mg daily. Ultracet 1 tablet daily. DuoNeb nebulizers q.6. Colace 100 p.o. b.i.d. Advair 1 puff p.o. b.i.d. Trazodone 50 at bedtime. Zyrtec 10 mg daily. Vitamin D3 5000 daily. Prilosec 20 mg p.o. b.i.d. ALLERGIES: Codeine, dexamethasone, hyperactiveness. SOCIAL HISTORY: She lives by herself. . Daughter is moving in from [place]. Continues to smoke. No alcohol. FAMILY HISTORY: Father of lung cancer at 69. REVIEW OF SYSTEMS: HEENT: Confusion. No headache. No dizziness. No earache. No sore throat. Neck: No goiter. No lymphadenopathy. No bruit. Cardiopulmonary: Shortness of breath. No chest pain. No PND. No orthopnea. No swelling of feet. GI: No nausea, vomiting, abdominal pain. : No history of hesitancy, frequency. Injury to the left foot. No back pain. Neurologic: No focal symptoms or weakness. PHYSICAL EXAMINATION: VITAL SIGNS: Afebrile. Vitals are stable. 5 feet, 5 inches. 112 pounds. HEENT: Atraumatic, normocephalic. Pupils equal, react to light. TMs are normal. Nose and throat within normal limits. NECK: Supple. No lymphadenopathy. JVD is not elevated. CHEST: Bilateral air entry. No wheezing. No crackles. HEART: Sounds are regular. ABDOMEN: Belly is soft, nontender. Obese. Good bowel sounds. No masses palpable. EXTREMITIES: One plus pedal edema. No obvious neurological deficits. INVESTIGATIONS: White cell count 7.2, hematocrit 33, platelets 183,000. PT 10. INR 1.0. D- dimer 2.94/ SMA 7: Sodium 134, potassium 5.4, chloride 79, BUN 12, creatinine 1.0, glucose 99. Cardiac enzymes were normal. ProBNP slightly elevated. Urinalysis is clear and left foot x-ray proximal great phalanx fracture. Chest x-ray COPD with chronic changes. ASSESSMENT AND PLAN: 1. 85-year-old white female, admitted to the hospital with acute metabolic encephalopathy due to hyponatremia. Gentle hydration. If no better with the Samsca. 2. Chronic systolic heart failure. Continue on Coreg, Lasix and lisinopril. 3. Paranoid schizophrenia. Continue home medicines. 4. Vitamin D deficiency on replacement. 5. Vitamin B12 deficiency on replacement. 6. DVT, GI prophylaxis with Protonix and Lovenox respectively. 7. History of left foot fracture. Venous Dopplers were negative. 8. Physical therapy and we will follow up on the labs in the morning. cc: Ray Pedraza MD
[2016-07-30] MEDS: COLACE PO SCH (20:06)
[2016-07-30] MEDS: ZYPREXA PO SCH (20:06)
[2016-07-30] MEDS: DESYREL PO SCH (20:06)
[2016-07-30] MEDS: REMERON PO SCH (20:06)
[2016-07-30] MEDS: MELATONIN PO SCH (20:07)
[2016-07-30] MEDS: DEPAKOTE SPRINKLE PO SCH (20:07)
[2016-07-30] MEDS: ATIVAN PO SCH (20:07)
[2016-07-30] MEDS: DUONEB (A & A) INH SCH ×2 (20:15→23:38)
[2016-07-30] MEDS: COREG PO SCH (22:00)
[2016-07-31] MEDS: DUONEB (A & A) INH SCH ×6 (03:47→23:00)
[2016-07-31 04:38] LABS: ALLEN TEST YES; BLOOD TYPE ARTERIAL; DRAW SITE R RADIAL; PO2(98.6) 74 mmHg (60-100); SAMPLE BLOOD
[2016-07-31 04:42] LABS: MODALITY CANNULA; PCO2(98.6) 72 mmHg (35-45)
[2016-07-31 06:30] LABS: MANUAL DIFF NEEDED? NO
[2016-07-31 06:40] LABS: BASO% 0.4 % (0.0-0.8); EOS% 2.1 % (0.0-10.0); HEMATOCRIT 30.5 % (37.0-47.0); HEMOGLOBIN 9.8 g/dL (12.0-16.0); LYMPH# 0.99 X1000 (1.2-3.4); LYMPH% 20.4 % (20.5-51.1); MCH 30.7 PG (27-31); MCHC 32.1 g/dL (33-37); MCV 95.6 FL (81-99); MONO# 0.57 X1000 (0.11-0.59); MONO% 11.7 % (1.7-9.3); MPV 9.8 FL (7.4-10.4); NEUT% 65.4 % (42.2-75.2); PLT 148 X1000 (130-400); RBC 3.19 XMIL (4.2-5.4)
[2016-07-31 06:54] LABS: AGAP 7; BUN 12 mg/dL (8-22); CALCIUM 8.7 mg/dL (8.8-10.2); CHLORIDE 85 mmol/L (98-107); COSMO 258; POTASSIUM 4.1 mmol/L (3.5-5.1); SODIUM 129 mmol/L (136-145); TCO2 37 mmol/L (25-35)
[2016-07-31] MEDS: ADVAIR 250/50 DISKUS INH SCH (07:25)
[2016-07-31] MEDS: HUMALOG SUBQ SCH ×4 (07:37→22:46)
[2016-07-31] MEDS: COLACE PO SCH ×2 (08:28→22:44)
[2016-07-31] MEDS: ZYRTEC PO SCH (08:29)
[2016-07-31] MEDS: CYANOCOBALAMIN IM SCH (08:29)
[2016-07-31] MEDS: COREG PO SCH ×2 (08:29→22:44)
[2016-07-31] MEDS: CENTRUM SILVER PO SCH (08:29)
[2016-07-31] MEDS: CYMBALTA PO SCH (08:29)
[2016-07-31] MEDS: VITAMIN D PO SCH (08:29)
[2016-07-31] MEDS: ATIVAN PO SCH ×2 (08:30→22:45)
[2016-07-31] MEDS: PRINIVIL PO SCH (08:43)
[2016-07-31] MEDS ORDERED: CALMOSEPTINE OINTMENT TOP PRN (10:20)
[2016-07-31] MEDS: ULTRACET 37.5MG/325MG PO SCH (13:11)
[2016-07-31] MEDS: NS 1,000 ML IV SCH (14:20)
--- NOTE | 2016-07-31 16:17 | Extremity Venous Study ---
PROCEDURE NAME: Venous U/S Bilateral Legs - 07/30/2016 BILATERAL LOWER EXTREMITY VENOUS DUPLEX AND COLOR FLOW IMAGING STUDY: Using the [employer] vivid E 9 ultrasound System with a 9 L-D transducer. REFERRING PHYSICIAN: Dr. Gonzalez from the emergency department. PICKER / PACKER: Madelaine Price RVT. INDICATIONS: Swelling of the limb. ICD 10 M79.89. FINDINGS: The right common femoral vein and its branches, deep and superficial femoral veins were satisfactorily imaged. They had flow through them and were compressible. Right popliteal vein and the deep veins below the right knee were all compressible and had flow through them. The superficial veins of the right lower extremity were compressible throughout their length. The left common femoral vein and its branches, deep and superficial femoral veins were also satisfactorily imaged. They had flow through them and were compressible. Left popliteal vein and the deep veins below the left knee were all compressible and had flow through them. The superficial veins the left lower extremity were compressible throughout their length. INTERPRETATION: No evidence of acute deep or superficial venous thrombosis of the bilateral lower extremities. cc: MD Ray Null MD
[2016-07-31] MEDS: PROTONIX IV SCH (17:35)
[2016-07-31] MEDS: LOVENOX SUBQ SCH (17:36)
[2016-07-31] MEDS: SODIUM CHLORIDE 0.9% INJ SCH (17:36)
[2016-07-31] MEDS ORDERED: DUONEB (A & A) ONE (19:08)
--- NOTE | 2016-07-31 19:59 | PROGRESS NOTE ---
DATE: 07/31/2016 SUBJECTIVE: Mental status is improving. No chest pain, shortness of breath. Improving the leg swelling. REVIEW OF SYSTEMS: None reported PHYSICAL EXAMINATION: Vital Signs: Afebrile. Vitals are stable. HEENT: Within normal limits. Neck: Supple. Chest: Bilateral air entry. Heart: Sounds are regular. Abdomen: Belly is soft, nontender. Extremities: No peripheral edema. Left foot has a boot was placed with Velcro tape. Neurologic: No neurological deficits. INVESTIGATIONS: CBC: White cell count 4.8, hematocrit 30, platelets of 148. D-dimer was positive. ABG: PH is 7.40, pCO2 is 72, pO2 is 74, bicarb 37 on 28% FiO2. SMA-7: Sodium 129, potassium 4.1, BUN 12, creatinine 0.8. ASSESSMENT AND PLAN: 1. Altered mental status. Improving. 2. Hyponatremia. Gentle hydration. 3. Chronic systolic heart failure. Stable on Coreg, lisinopril. 4. Chronic obstructive pulmonary disease on oxygen, stable. 5. History of paranoid schizophrenia, stable. 6. Left foot fracture. Venous Dopplers were negative. Continue on Lovenox and follow up on SMA-7 in the morning. We will discuss with patient's daughter about disposition. LEVEL OF DOCUMENTATION: Is 25 minutes. cc: Ray Pedraza MD
[2016-07-31] MEDS: MELATONIN PO SCH (22:44)
[2016-07-31] MEDS: REMERON PO SCH (22:44)
[2016-07-31] MEDS: DESYREL PO SCH (22:44)
[2016-07-31] MEDS: ZYPREXA PO SCH (22:44)
[2016-07-31] MEDS: DEPAKOTE SPRINKLE PO SCH (22:45)
[2016-08-01] MEDS ORDERED: NORCO-5 PO ONE (01:53)
[2016-08-01] MEDS: DUONEB (A & A) INH SCH ×6 (03:18→22:33)
[2016-08-01] MEDS: HUMALOG SUBQ SCH ×4 (06:20→20:36)
[2016-08-01 07:34] LABS: AGAP 10; BUN 12 mg/dL (8-22); CALCIUM 8.8 mg/dL (8.8-10.2); CHLORIDE 89 mmol/L (98-107); COSMO 258; POTASSIUM 5.1 mmol/L (3.5-5.1); SODIUM 129 mmol/L (136-145); TCO2 30 mmol/L (25-35)
[2016-08-01] MEDS: COLACE PO SCH ×2 (08:14→20:50)
[2016-08-01] MEDS: COREG PO SCH ×2 (08:14→20:49)
[2016-08-01] MEDS: ZYRTEC PO SCH (08:14)
[2016-08-01] MEDS: VITAMIN D PO SCH (08:14)
[2016-08-01] MEDS: CENTRUM SILVER PO SCH (08:14)
[2016-08-01] MEDS: CYMBALTA PO SCH (08:15)
[2016-08-01] MEDS: CYANOCOBALAMIN IM SCH (08:15)
[2016-08-01] MEDS: PRINIVIL PO SCH (08:15)
[2016-08-01] MEDS: ATIVAN PO SCH ×2 (08:17→20:49)
[2016-08-01] MEDS: ADVAIR 250/50 DISKUS INH SCH (08:18)
[2016-08-01] MEDS: NS 1,000 ML IV SCH (10:55)
[2016-08-01] MEDS: ULTRACET 37.5MG/325MG PO SCH (12:16)
[2016-08-01] MEDS: LOVENOX SUBQ SCH (18:30)
[2016-08-01] MEDS: PROTONIX IV SCH (18:30)
[2016-08-01] MEDS: SODIUM CHLORIDE 0.9% INJ SCH (18:30)
[2016-08-01] MEDS ORDERED: SAMSCA PO ONE (19:15)
--- NOTE | 2016-08-01 19:41 | PROGRESS NOTE ---
DATE: 08/01/2016 SUBJECTIVE: Confusion is much better. Complains of pain in the left foot requiring [place] and no chest pain, shortness of breath. PHYSICAL EXAMINATION: Vital Signs: Stable, afebrile, blood pressure is 120/45, nasal cannula 98% on 2 L. HEENT: Within normal limits. Neck: Supple. Chest: Bilateral air entry. Heart: Sounds are regular. Abdomen: Belly is soft, nontender. Good bowel sounds. Extremities: Left foot has a boot seen. INVESTIGATIONS: Sodium 129, potassium 5.1, BUN 12, creatinine 0.8, glucose 145. ASSESSMENT AND PLAN: 1. Altered mental status. Improving. Hypernatremia. 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 Gentle hydration. 2. Left foot great toe fracture. On the boot, stable. 3. Chronic obstructive pulmonary disease, stable. 4. Chronic systolic heart failure. Continue present medical therapy. I discussed with the family. Hopefully will be discharged home if the sodium levels are normal. Confusion improved. cc: Ray Pedraza MD
[2016-08-01 20:30] LABS: AGAP 7; BUN 13 mg/dL (8-22); CALCIUM 8.7 mg/dL (8.8-10.2); CHLORIDE 89 mmol/L (98-107); COSMO 261; POTASSIUM 4.8 mmol/L (3.5-5.1); SODIUM 130 mmol/L (136-145); TCO2 34 mmol/L (25-35)
[2016-08-01] MEDS: MELATONIN PO SCH (20:49)
[2016-08-01] MEDS: DEPAKOTE SPRINKLE PO SCH (20:49)
[2016-08-01] MEDS: ZYPREXA PO SCH (20:49)
[2016-08-01] MEDS: DESYREL PO SCH (20:50)
[2016-08-01] MEDS: REMERON PO SCH (20:50)
[2016-08-02] MEDS ORDERED: NORCO-5 PO ONE (00:28)
[2016-08-02] MEDS: DUONEB (A & A) INH SCH ×3 (03:41→12:02)
[2016-08-02] MEDS: HUMALOG SUBQ SCH ×2 (06:15→11:45)
[2016-08-02 07:35] VITALS: BP 118/51
[2016-08-02] MEDS: ADVAIR 250/50 DISKUS INH SCH (07:43)
[2016-08-02] MEDS: COLACE PO SCH (08:19)
[2016-08-02] MEDS: COREG PO SCH (08:19)
[2016-08-02] MEDS: PRINIVIL PO SCH (08:19)
[2016-08-02] MEDS: CENTRUM SILVER PO SCH (08:19)
[2016-08-02] MEDS: CYMBALTA PO SCH (08:19)
[2016-08-02] MEDS: NS 1,000 ML IV SCH (08:19)
[2016-08-02] MEDS: ATIVAN PO SCH (08:19)
[2016-08-02] MEDS: VITAMIN D PO SCH (08:19)
[2016-08-02] MEDS: CYANOCOBALAMIN IM SCH (08:19)
[2016-08-02] MEDS: ZYRTEC PO SCH (08:20)
--- NOTE | 2016-08-02 21:40 | DISCHARGE SUMMARY ---
ADMISSION DATE: 07/30/2016 DISCHARGE DATE: 08/02/2016 DISCHARGING DIAGNOSIS: Altered mental status due to hyponatremia. SECONDARY DIAGNOSIS: 1. Left great toe fracture. 2. Decompensated chronic nonischemic systolic heart failure. OTHER DIAGNOSES: 1. Chronic obstructive pulmonary disease with interstitial fibrosis on oxygen. 2. Paranoid schizophrenia. 3. Mild dementia. 4. Depression with anxiety. 5. Compression fractures at T5-T6. 6. Chronic tobacco abuse. 7. Acid reflux disease. BRIEF HISTORY: Please see the H and P that was done on the 07/30/2016. In brief she is an 85- year-old white female, who was brought in by family with confusion, swelling of legs, falling sustaining injury to the left foot. HOSPITAL COURSE: She was found to have sodium levels were low and given IV Lasix with excellent diuresis. When I examined the patient there is no peripheral edema. Heart failure is pretty much stable. She also has great toe proximal phalanx fracture. She was given gentle hydration and Samsca, follow up sodium levels 130. Rest of the hospital course was uneventful. She was also given bronchodilators for underlying COPD. LABORATORIES: CBC. White cell count 4.8, hematocrit 30.5, platelets count 148,000. ABG, pH is 7.40, pCO2 72, PO2 74 on 2 L. SMA 7, sodium 130 from 124, potassium 4.8, chloride 89, BUN 13, creatinine 0.7, glucose 102, calcium 8.7. ProBNP 1100. Cardiac enzymes were normal. Urinalysis is clear. DISCHARGE INSTRUCTIONS: I discussed with the daughter and she is much better. She wants to take her home with the following instructions. Coreg 3.125 p.o. b.i.d., Depakote 750 daily, Cymbalta 30 mg daily, Lasix 20 mg in the morning, lisinopril 2.5 every morning, Ativan 0.5 p.o. b.i.d., melatonin 5 mg daily, Remeron 30, daily multivitamin 1 tablet daily, Zyprexa 30 mg daily, Ultracet 1 tablet daily, DuoNeb 1 puff q.6, Colace 100 p.o. b.i.d., Advair 1 puff p.o. b.i.d., trazodone 50 at bedtime, Zyrtec 10 mg daily, vitamin D 5000 units daily, Prilosec 20 p.o. b.i.d. and follow up in my office next week. During that time will also do BMP. cc: Ray Pedraza MD
== END 2016-08-02 13:20 | disposition home health service (06) ==
LOC: ED 09:08 → 3N 17:30
PROVIDERS: ADMIT Internal Medicine; ATTEND Internal Medicine